=== PATIENT | female | born 1985 | race American Indian/Alaskan Native ===

== ENCOUNTER 2018-04-04 20:44 | Emergency (ER) | payer BC ==
[2018-04-04] MEDS ORDERED: Morphine 10 MG/ML Syringe IM ONE (20:54)
--- NOTE | 2018-04-05 11:41 | ER ---
DATE SEEN: 04/04/2018 TIME SEEN: 2045 hours. CHIEF COMPLAINT: Tooth pain. HISTORY OF PRESENT ILLNESS: This is a 32-year-old female, who presented with tooth pain for six months or more, but has been worse in the last day or two in the lower and upper jaws on the left at the top. REVIEW OF SYSTEMS: No fever or chills. ALLERGIES: None. PHYSICAL EXAMINATION: GENERAL/VITAL SIGNS: Tearful, afebrile, and normotensive. HEENT: Oral exam revealed poor dentition with several dental fillings. There is an area on the left upper molar and the left lower molar with a large cavity and exposed gum. It is exquisitely tender. IMPRESSION: 1. Dental abscess. 2. Dental caries. PLAN: Treatment is with morphine 10 mg x1 dose, and Drummond one tablet every 6 hours, and amoxicillin half a gram t.i.d. I advised her to see a dentist as soon as practical. /[id number] SONIDO/PETTY
== END 2018-04-04 21:20 | disposition home or self-care (01) ==
LOC: FB.ED 20:44
DX: K04.7 Periapical abscess without sinus (principal); K02.9 Dental caries, unspecified
CPT/HCPCS: 96372; 99282; J2270